=== PATIENT | male | born 1970 | race Two or more races ===

== ENCOUNTER 2018-11-03 16:32 | Emergency (ER) | payer OTHER ==
[~2018-11-03] VITALS: Ht 172.7 cm; Wt 95.3 kg
[2018-11-03] MEDS ORDERED: ACETAMINOPHEN ES 500 MG TABLET PO ONE (17:00)
[2018-11-03] MEDS ORDERED: IV NS 0.9% 1,000 ML BAG IV ONE (17:00)
--- NOTE | 2018-11-03 17:03 | NUR ---
"bib ra in full c-spine s/p syncopal episode today" PT VERBALLY RESPONSIVE, -SOB, NAD NOTED, VSS, PENDING MD YNI
[2018-11-03 17:27] LABS: BASOPHILS % (AUTO) 0.3 % (0.0-2.0); EOSINOPHILS % (AUTO) 1.4 % (0.0-6.0); HEMATOCRIT 35 % (39-51); HEMOGLOBIN 11.6 g/dL (13.5-17.5); LYMPHOCYTES % (AUTO) 36.2 % (20.0-44.0); MEAN CORPUSCULAR HGB CONC 33 g/dl (31.0-36.0); MEAN CORPUSCULAR VOLUME 87 fL (80-96); MONOCYTES # (AUTO) 0.3 /CMM (0.1-1.30); MONOCYTES % (AUTO) 5.3 % (2.0-12.0); NEUTROPHILS # (AUTO) 3.1 /CMM (1.8-8.9); NEUTROPHILS % (AUTO) 56.8 % (43.0-81.0); PLATELET COUNT (AUTO) 197 /CMM (150-450); RED BLOOD CELL COUNT(AUTO) 3.98 MIL/uL (4.5-6.0); WHITE BLOOD COUNT (AUTO) 5.5 K/uL (4.3-11.0)
[2018-11-03] MEDS ORDERED: CARB-96 PO (17:27)
[2018-11-03] MEDS ORDERED: GABA600T12 PO (17:27)
[2018-11-03] MEDS ORDERED: LEVETIRACETAM (500MG) 1,000 MG in IV NS 0.9% 100 ML IV SCH (17:30)
[2018-11-03 17:35] LABS: CALCIUM, SERUM 8.2 mg/dL (8.5-10.1); CARBON DIOXIDE 22 mmol/L (21-32); CHLORIDE 103 mmol/L (98-107); CREATININE 0.8 mg/dL (0.6-1.3); GLUCOSE 88 mg/dL (74-106); POTASSIUM 3.9 mmol/L (3.5-5.1); SODIUM SERUM 138 mmol/L (136-145); UREA NITROGEN, BLOOD 16 mg/dL (7-18)
[2018-11-03 17:41] LABS: ALANINE AMINOTRANSFERASE 20 U/L (12-78); ALBUMIN 3.4 g/dL (3.4-5.0); ALCOHOL, BLOOD 229 mg/dL (0-0); ALKALINE PHOSPHATASE 86 U/L (46-116); ASPARTATE AMINOTRANSFERASE 15 U/L (15-37); BILIRUBIN,DIRECT 0.1 mg/dL (0.0-0.2); BILIRUBIN,TOTAL 0.3 mg/dL (0.2-1.0); TOTAL PROTEIN, SERUM 7.1 g/dL (6.4-8.2)
[2018-11-03 18:33] VITALS: BP 107/59
[2018-11-03 18:53] LABS: APPEARANCE,URINE Clear (CLEAR); BILIRUBIN,URINE Negative (NEGATIVE); BLOOD, URINE Negative Ery/uL (NEGATIVE); COLOR,URINE Light yellow (YELLOW); KETONES,URINE Negative (NEGATIVE); LEUKOCYTE ESTERASE ,URINE Negative (NEGATIVE); NITRITE, URINE Negative (NEGATIVE); PH,URINE 5.5 (5.0-8.0); PROTEIN,URINE Negative (NEGATIVE); UGLUCOSE Negative (NEGATIVE); UROBILINOGEN,URINE 0.2 EU/dL (0.2)
--- NOTE | 2018-11-03 19:59 | NUR ---
Patient discharged to home in stable condition. Written and verbal after care instructions given. Patient verbalizes understanding of instruction. IV removed. Catheter intact and site benign. Pressure and 4x4 applied to site. No bleeding noted.
== END 2018-11-03 20:16 | disposition home or self-care (01) ==
LOC: ER 16:37 → EDBD 16:37 → ER 20:16
DX: T51.8X1A Toxic effect of other alcohols, accidental (unintentional), initial encounter (principal); R41.82 Altered mental status, unspecified; R51 Headache; G20 Parkinson's disease; R56.9 Unspecified convulsions; E66.01 Morbid (severe) obesity due to excess calories; I45.10 Unspecified right bundle-branch block; Z60.2 Problems related to living alone; Z98.890 Other specified postprocedural states; Y92.89 Other specified places as the place of occurrence of the external cause
CPT/HCPCS: 36415; 70450; 71045; 72125; 74176; 80048; 80076; 80305; 80307; 81001; 84484; 85025; 85730; 86850; 87081; 93005; 96365; 99284; J1953; J7030 ×2; 81000-TC; G0480

== ENCOUNTER 2018-12-25 12:40 | Emergency (ER) | payer OTHER ==
[~2018-12-25] VITALS: Ht 167.6 cm; Wt 117.0 kg
[~2018-12-25 12:40] MED LIST: CARB-96 PO; GABA600T12 PO
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
--- NOTE | 2018-12-25 15:08 | NUR ---
PATIENT IN BED ASLEEP, EASILY AROUSABLE BY VOICE. PATIENT STILL NOT ABLE TO SIT UP, WILL CONTINUE TO MONITOR.
--- NOTE | 2018-12-25 15:59 | NUR ---
PATIENT ABLE TO AMBULATE WITH STEADY GAIT, MADE RICHARD FERNANDEZ
--- NOTE | 2018-12-25 16:21 | NUR ---
Patient discharged to home in stable condition. Written and verbal after care instructions given. Patient verbalizes understanding of instruction.
[2018-12-25 16:27] VITALS: BP 125/60
== END 2018-12-25 16:20 | disposition home or self-care (01) ==
LOC: ER 12:40
DX: F10.129 Alcohol abuse with intoxication, unspecified (principal); R56.9 Unspecified convulsions; G20 Parkinson's disease; Y90.9 Presence of alcohol in blood, level not specified; Z98.890 Other specified postprocedural states; Z60.2 Problems related to living alone

== ENCOUNTER 2018-12-26 02:23 | Emergency (ER) | payer OTHER ==
[~2018-12-26] VITALS: Ht 185.4 cm; Wt 119.7 kg
--- NOTE | 2018-12-26 02:34 | NUR ---
Rachel lacy in [place] - 12/26/18 at 0448 by KERRIE PT TAKEN TO RADIOLOGY [facility]
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
--- NOTE | 2018-12-26 02:44 | NUR ---
PT TAKEN TO [facility]IOLOGY [facility]
--- NOTE | 2018-12-26 02:53 | NUR ---
PT RETURNED FROM [facility]
[2018-12-26 04:48] VITALS: BP 135/64
--- NOTE | 2018-12-26 05:07 | NUR ---
PT ABLE TO AMBULATE WITH NO ASSISTANCE WITH STEADY GAIT
--- NOTE | 2018-12-26 05:31 | NUR ---
PT PROVIDED WITH FOOD AND DRINK. PT WAS ALSO PROVIDED WITH CLEAN CLOTHES
== END 2018-12-26 05:46 | disposition home or self-care (01) ==
LOC: ER 02:23
DX: F10.10 Alcohol abuse, uncomplicated (principal); F41.9 Anxiety disorder, unspecified; R56.9 Unspecified convulsions; G20 Parkinson's disease; I10 Essential (primary) hypertension; F20.9 Schizophrenia, unspecified; F31.9 Bipolar disorder, unspecified; Y90.9 Presence of alcohol in blood, level not specified; Z98.890 Other specified postprocedural states; Z60.2 Problems related to living alone
CPT/HCPCS: 70450-TC

== ENCOUNTER 2019-10-09 23:24 | Emergency (ER) | payer OTHER ==
[~2019-10-09] VITALS: Ht 195.6 cm; Wt 95.3 kg
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
--- NOTE | 2019-10-10 02:52 | NUR ---
PT RESTING COMFORTABLY IN BED.VSS. NO ACUTE DISTRESS NOTED. SITTER AT BEDSIDE FOR SAFETY. WILL CONTINUE TO MONITOR
--- NOTE | 2019-10-10 05:09 | NUR ---
PT AWAKE, AAOX4. AMBULATORY WITH STEADY GAIT. PT MEDICALLY CLEARED FOR DISCHARGE. PT DENIES BEING HOMELESS, STATES HE WILL TAKE THE BUS HOME. Patient discharged to home in stable condition. Written and verbal after care instructions given. Patient verbalizes understanding of instruction. Pt ambulatory with a steady gait
[2019-10-10 05:13] VITALS: BP 129/84
== END 2019-10-10 05:13 | disposition home or self-care (01) ==
LOC: ER 23:26
DX: F10.10 Alcohol abuse, uncomplicated (principal); R56.9 Unspecified convulsions; G20 Parkinson's disease; I10 Essential (primary) hypertension; E11.9 Type 2 diabetes mellitus without complications; F31.9 Bipolar disorder, unspecified; F20.9 Schizophrenia, unspecified; Y90.9 Presence of alcohol in blood, level not specified; Z98.890 Other specified postprocedural states; Z60.2 Problems related to living alone; Z79.899 Other long term (current) drug therapy
CPT/HCPCS: 99283; J7030